=== PATIENT | female | born 1995 | race Caucasian/White ===

== ENCOUNTER 2017-10-12 15:54 | Emergency (ER) | payer BC ==
--- NOTE | 2017-10-12 16:39 | UC ---
Throat Pain/Nasal Elpidio HPI - HPI Summary HPI Summary: 22 female presents to with complaints of sore throat, mild cough, and nasal congestion for the past 2-3 weeks. Patient noticed yesterday a white spot near her tonsil. Denies fever, chills, nausea, vomiting, headache, difficulty breathing. Pain is only with swallowing. Admits to having some ear pain earlier on. Has not taken anything other than some mucinex here and there and ibuprofen. No other complaints. No known sick contacts. No PMHx. Has never been diagnosed with mono. - History of Current Complaint Chief Complaint: UCRespiratory Stated Complaint: ST Time Seen by Provider: 10/12/17 16:25 Hx Obtained From: Patient Hx Last Menstrual Period: 2 days Onset/Duration: Sudden Onset, Lasting Weeks, Still Present Severity: Mild Pain Intensity: 7 Pain Scale Used: 0-10 Numeric Cough: Nonproductive - intermittent, minimal Associated Signs & Symptoms: Positive: Dysphagia - Epiglottits Risk Factors Epiglottis Risk Factors: Negative - Allergies/Home Medications Allergies/Adverse Reactions: Allergies Allergy/AdvReac Type Severity Reaction Status Date / Time No Known Allergies Allergy Verified 10/12/17 16:26 Home Medications: Home Medications Pintrea O C 1 tab PO QPM 10/12/17 [History Confirmed 10/12/17] PMH/Surg Hx/FS Hx/Imm Hx - Additional Past Medical History Additional PMH: Denies PMHx, no DM or HTN - Surgical History Surgical History: Yes Surgery Procedure, Year, and Place: right meniscus repair, left ear plastic surgery - Family History Known Family History: Positive: None - Social History Alcohol Use: Weekly Alcohol Amount: 3-4 Substance Use Type: None Smoking Status (MU): Never Smoked Tobacco - Immunization History Vaccination Up to Date: Yes Review of Systems Constitutional: Negative ENT: Sore Throat, Ear Ache, Nasal Discharge Respiratory: Cough - minimal Cardiovascular: Negative Musculoskeletal: Negative Neurological: Negative All Other Systems Reviewed And Are Negative: Yes Physical Exam Triage Information Reviewed: Yes Appearance: Well-Appearing, No Pain Distress, Well-Nourished Vital Signs: Initial Vital Signs Temp 98.2 F 10/12/17 16:19 Pulse 96 10/12/17 16:19 Resp 18 10/12/17 16:19 BP 153/81 10/12/17 16:19 repeat BP was 114/72 Vital Signs Reviewed: Yes Eyes: Positive: Conjunctiva Clear ENT: Positive: Hearing grossly normal, Pharyngeal erythema - with apthous ulcer of posterior oropharynx noted, Nasal congestion, TMs normal, Uvula midline - airway patent. Negative: TM bulging, TM dull, TM red, Tonsillar swelling, Tonsillar exudate - small tonsilloliths noted left tonsils, Trismus, Muffled voice, Hoarse voice Dental: Negative: Percussion Tenderness @, Cervical Lymphadenopathy Neck: Positive: Supple, Nontender, No Lymphadenopathy Respiratory: Positive: Chest non-tender, Lungs clear, Normal breath sounds, No respiratory distress Cardiovascular: Positive: RRR, No Murmur, Pulses Normal Neurological: Positive: Alert Throat Pain/Nasal Course/Dx - Course Course Of Treatment: rapid strep obtained and negative. appears to be suffering from a viral illness due to pharyngeal erythema, apthous ulcer and complaint of symptoms. normal vitals and PE findings otherwise. no concern for other etiology at this time. follow up pcp. salt water swishes, chloraseptic spray, zicam, increase fluid intake, rest, maintain good oral hygeine. flonase for nasal congestion. aware of worsening signs and symptoms to watch out for. - Differential Dx/Diagnosis Differential Diagnosis/HQI/PQRI: Mononucleosis, Pharyngitis, Tonsillitis, URI, Other - apthous stomatitis Provider Diagnoses: pharyngitis, apthous stomatitis Discharge - Discharge Plan Condition: Stable Disposition: HOME Prescriptions: Fluticasone NASAL SPRAY 50MCG* [Flonase NASAL SPRAY 50MCG*] 2 spray BOTH NARES DAILY #1 btl Patient Education Materials: Pharyngitis (ED), Canker Sores (ED) Referrals: Non Staff,Doctor [Primary Care Provider] - Additional Instructions: Recommend salt water gargles multiple times daily for 1 week or while symptoms persist. Flonsae as prescribed. Continue mucinex for congestion. Increase fluid intake and get plenty of rest. Maintain good oral hygiene. Suggest zicam or emergen-c sold over the counter to boost immune system. Chloraseptic spray to help soothe sore throat. Follow up with PCP. Any new or worsening symptoms please seek medical attention promptly, as discussed.
== END 2017-10-12 17:24 | disposition home or self-care (01) ==
LOC: UCCORT 15:54
DX: J02.9 Acute pharyngitis, unspecified (principal); K12.0 Recurrent oral aphthae
CPT/HCPCS: 87651; 99202; G0463